=== PATIENT | male | born 1960 | race Caucasian/White ===

== ENCOUNTER 2022-09-25 09:08 | Inpatient (IN) ==
--- NOTE | 2022-09-15 09:17 | Anesthesiology Consultation ---
Date of Service September 15, 2022 Assessment & Plan (1) Encounter for pre-operative examination: Chart Review Chart Review: Acceptable Risk for Surgery (pending 09/15/22 PCP note ) and Patient NOT seen in Pre Admission Testing - Please attempt to obtain PCP office note from 09/15/22 (Ronel Ghosh) - Check [facility] AM DOS -COVID screening: Per PAT nursing assessment on 09/15/22. No known COVID-19 pos itive contacts or current COVID-19 related symptoms. Travel screen negative. Patient vaccinated for Covid. At surgeon discretion if preop Covid testing being done. History Surgery Operation Date: 09/25/22 10:05 Proposed Procedures p L3-S1 Decompression and Fusion, Spinal Cord Monitoring - Milad Fernandez, Height/Weight Height: 5 ft 10 in Weight: 124.738 kg Allergies Allergy/AdvReac Type Severity Reaction Status Date / Time No Known Drug Allergies Allergy Verified 09/15/22 07:33 fresh fruit Allergy Anaphylaxis Uncoded 09/15/22 07:33 Medications Home Medications Medication Instructions Recorded Confirmed Last Taken atorvastatin 20 mg tablet 20 mg PO QAM 09/15/22 09/15/22 Unknown canagliflozin 300 mg tablet 300 mg PO QAM 09/15/22 09/15/22 Unknown (Invokana) levothyroxine 137 mcg tablet 137 mcg PO QAM 09/15/22 09/15/22 Unknown lisinopril 10 mg tablet 10 mg PO QAM 09/15/22 09/15/22 Unknown Past Medical History Medical History (Updated 09/15/22 @ 09:15 by Maria Luisa Cartwright PA-C) Arthritis mild-in hands and back Diabetes mellitus, type 2 History of COVID-19 11/2020, tested at PCP, not hosp; shortness of breath, loss of taste and smell, headache, diarrhea, vomiting, sinus symptoms>received the monoclonal antibody infusions>resolved. Hyperlipidemia Hypertension Hypothyroidism YASMEEN (obstructive sleep apnea) s/p UPPP surgery per records Past Surgical History Surgical History History of uvulopalatopharyngoplasty to help with sleep apnea Hx of sinus surgery Hx of umbilical hernia repair S/P excision of lipoma under local>removed from shoulder blade Social History Smoking Status: Never smoker Do You Dip or Chew Tobacco: No Hx Alcohol Use: Yes alcohol intake frequency: holidays/special occasions only Hx Substance Use: No substance use type: does not use Lab Results Anesthesia Preop Results Results Anesthesia Widget: WBC 10.22 K/ul (4.8-10.8) 08/27/22 Hgb 17.0 g/dl (14.0-18.0) 08/27/22 Hct 52.4 % (42.0-52.0) H 08/27/22 Plt 266 K/uL (130-400) 08/27/22 Na 137 mmol/L (136-145) 08/27/22 K 4.3 mmol/L (3.5-5.1) 08/27/22 Cl 107 mmol/L (98-107) 08/27/22 CO2 22 mmol/L (21-32) 08/27/22 BUN 21 mg/dl (6-23) 08/27/22 Creat 1.10 mg/dl (0.6-1.4) 08/27/22 Glucose Level 83 mg/dl (70-99(Fasting)) 08/27/22 PT 10.9 Seconds (9.0-12.0) 08/27/22 PTT 29.3 Seconds (21.0-31.0) 08/27/22 INR 1.0 (0.9-1.1) 08/27/22 Urine Color Yellow 08/27/22 Urine Appearance Clear (Clear) 08/27/22 Urine pH 5.0 (4.5-7.5) 08/27/22 Urine Specific Anderson 1.033 (1.000-1.030) H 08/27/22 Urine Protein Negative (Negative) 08/27/22 Urine Glucose (UA) 3+ (Negative) H 08/27/22 Urine Ketones Negative (Negative) 08/27/22 Urine Blood 3+ (Negative) H 08/27/22 Urine Nitrite Negative (Negative) 08/27/22 Urine Bilirubin Negative (Negative) 08/27/22 Urine Urobilinogen Negative (Negative) 08/27/22 Urine Leukocyte Esterase Negative (Negative) 08/27/22 Urine WBC (Auto) 1-5 /hpf (0-5) 08/27/22 Urine RBC (Auto) 0-4 /hpf (0-4) 08/27/22 Urine Hyaline Casts (Auto) 1-5 /lpf (0-5) 08/27/22 Urine Epithelial Cells (Auto) 0-5 /lpf (0-5) 08/27/22 Urine Bacteria (Auto) Negative (Negative) 08/27/22 Blood Type A Positive 08/27/22 Antibody Screen NEGATIVE 08/27/22 Testing Laboratory Results 08/27/22= URINE CULTURE: No growth Electrocardiogram Date: 08/27/22 Findings: + NSR @ (75bpm ) Rightward axis Chest X-Ray Date: 08/27/22 Findings: + NAD
[~2022-09-25 09:08] MED LIST: ACETAMINOPHEN 500 MG TAB PO SCH; CeleBREX 200 MG CAP PO SCH; GABAPENTIN 600 MG DOSE PO SCH; LR 15ML/HR IV SCH
[2022-09-25] MEDS ORDERED: ATROPINE SULFATE 0.1 MG/ML 10ML SYR IV PRN (10:56)
[2022-09-25] MEDS ORDERED: ePHEDrine sulfate 50 MG/ML AMP IV PRN (10:56)
[2022-09-25] MEDS ORDERED: ONDANSETRON INJ 2 MG/ML 2 ML VIAL IV PRN ×2 (10:56→16:29)
[2022-09-25] MEDS ORDERED: ROCURONIUM BROMIDE 10 MG/ML 5 ML VIAL IV ONE ×3 (11:39→13:14)
[2022-09-25] MEDS ORDERED: PROPOFOL IV EMULSION 10 MG/ML 20 ML VIAL IV ONE (11:39)
[2022-09-25] MEDS ORDERED: LIDOCAINE 2% 2 ML VIAL/AMP(20MG/ML) INFIL ONE (11:39)
[2022-09-25] MEDS ORDERED: MIDAZOLAM HCL 1 MG/ML 2ML VIAL ONE (11:40)
[2022-09-25] MEDS ORDERED: DEXAMETHASONE SOD INJ 4 MG/ML VIAL ONE (11:40)
[2022-09-25] MEDS ORDERED: fentaNYL citrate PF 100 MCG/2 ML VIAL ONE (11:40)
[2022-09-25] MEDS ORDERED: ONDANSETRON INJ 2 MG/ML 2 ML VIAL ONE (11:40)
--- NOTE | 2022-09-25 11:58 | History & Physical Bridge Note ---
Date of Service September 25, 2022 History & Physical Bridge Note I have examined the patient, reviewed the History & Physical and in the interval since the performance of the History & Physical I have noted the following changes of clinical significance: no changes noted
--- NOTE | 2022-09-25 11:59 | History & Physical Report ---
Date of Service September 25, 2022 Assessment & Plan (1) Neurogenic claudication due to lumbar spinal stenosis: Plan: L3-S1 decompression and fusion History of Present Illness Chief Complaint: Back and leg pain Primary Care Provider: NO PCP This is a 62-year-old male who presents with chronic persistent back and leg pain after failing extensive course of nonoperative care is here for surgical intervention. Allergies Allergy/AdvReac Type Severity Reaction Status Date / Time No Known Drug Allergies Allergy Verified 09/25/22 10:06 fresh fruit Allergy Anaphylaxis Uncoded 09/25/22 10:06 Home Medications Medication Instructions Recorded Confirmed Type atorvastatin 20 mg tablet 20 mg PO QAM 09/15/22 09/25/22 History canagliflozin 300 mg tablet 300 mg PO QAM 09/15/22 09/25/22 History (Invokana) levothyroxine 137 mcg tablet 137 mcg PO QAM 09/15/22 09/25/22 History lisinopril 10 mg tablet 10 mg PO QAM 09/15/22 09/25/22 History Past Med/Surg History Medical History (Updated 09/25/22 @ 11:58 by Milad Fernandez, ) Arthritis mild-in hands and back Diabetes mellitus, type 2 History of COVID-19 11/2020, tested at PCP, not hosp; shortness of breath, loss of taste and smell, headache, diarrhea, vomiting, sinus symptoms>received the monoclonal antibody infusions>resolved. Hyperlipidemia Hypertension Hypothyroidism YASMEEN (obstructive sleep apnea) s/p UPPP surgery per records Surgical History History of uvulopalatopharyngoplasty to help with sleep apnea Hx of sinus surgery Hx of umbilical hernia repair S/P excision of lipoma under local>removed from shoulder blade Social History Smoking Status: Never smoker Second Hand Exposure: No; Do You Dip or Chew Tobacco: No; Tobacco Cessation Education Requested by Patient: No Hx Alcohol Use: Yes Hx Substance Use: No Preferred Language: Kinyarwanda Communication Ability: Effective Inventory Assistant Required: No Beliefs That Will Affect Care: None Current Living Situation: Spouse and Family Feels Safe at Home: Yes Safety Concerns: Feels Safe At This Time Assistive Devices: Glasses Assistive Devices Comment: reading glasses Physical Exam Physical Exam: Patient is alert and oriented Heart regular rhythm Lungs clear Results & Data Results & Data Vital Signs (Past 12 Hours) Vital Signs Temp Pulse Resp BP Pulse Ox O2 Del Method 09/25/22 10:09 36.7 C 77 20 147/82 H 95 Room Air
[2022-09-25] MEDS ORDERED: BUPIVACAINE/EPINEPHRINE 0.25% 1:200,000 30 ML VIAL ONE (12:40)
[2022-09-25] MEDS ORDERED: ceFAZolin 330 MG/ML 1 GM VIAL ONE (12:40)
[2022-09-25] MEDS ORDERED: FLOSEAL HEMOSTATIC MATRIX 10ML TOP ONE (13:28)
[2022-09-25] MEDS ORDERED: PHENYLEPHRINE HCL 10 MG/ML VIAL ONE (14:18)
[2022-09-25] MEDS ORDERED: HYDROmorphone INJ 2 MG/ML SYR/VIAL ONE (14:56)
--- NOTE | 2022-09-25 15:06 | Operative Report ---
Post Operative Report Pre & Post Diagnosis Operation Date: 09/25/22 10:45 Pre-Op Diagnosis: Neurogenic claudication due to lumbar spinal stenosis Obesity Post-Op Diagnosis: Same I identified the patient and participated in the time-out.: Yes Procedure Operation Date: 09/25/22 10:45 Actual Procedures p L4-S1 Decompression and Fusion, Spinal Cord Monitoring(Not Applicable) - Milad Fernandez DO Surgeon Milad Fernandez DO Bone Puller Louis Bill Estimated Blood Loss 300 Findings See Below The patient is 5 foot 10 weighing over 120 kg with a BMI in excess of 38. The patient's body habitus did contribute to significant technical difficulty required deepest retractors longer instruments in order to perform his procedure. This had at least 50% increased operative time. Specimens None Indications This is a 59-year-old male who presents above-mentioned diagnosis after failing since course of nonoperative care is here for surgical invention. Description of Procedure Patient was met with identified informed consent obtained. Patient was then daron en to the operative suite underwent ablation placed in a prone position the Jex table top Rohit frame. All bony promises well-padded eyes inspected to ensure no external pressure placed upon the. This point the lumbar spine was prepped and draped no sterile fashion. Sharp dissection with the assistance of Bovie cautery to form down to and exposing the lamina transverse processes of L for L5 and sacral ala bilaterally. From caudal cephalad fashion complete laminectomy L5 L4 partial laminectomy L3 was performed including bilateral medial facetectomies and foraminotomies addressing severe spinal stenosis. Pedicle screws were then placed in L4-L5 and S1 levels bilaterally with assistance of fluoroscopy and appropriate sized masood placed. By way the transforaminal approach and right complete discectomy of L5-S1 was performed endplates guided to subcortically bone and a 12 x 26 mm Spira cage with I factor tapped the position. Then proceeded to L3-L4 and again by way of a transfemoral approach and right complete discectomy performed endplates curetted to subcortically bone and a 13 x 26 mm Spira cage with I factor tapped in position. Proper size rods were locked into position transverse processes of L4-5 and the sacral ala burred to subcortical bleeding bone. I factor amount of the test and locally harvested morselized autograft was placed in the posterior gutters. 15 round LENI inserted. The incision was then closed with 1 Vicryl the fascia 2-0 Vicryl subcutaneously and 4 Monocryl for final skin closure. Steri-Strips sterile dressing placed. Patient waken taken to PACU stable condition. Please note spinal cord monitoring was utilized at the procedure no changes noted. Lastly Louis Matamoros was present at the entire surgeon while the patient positioning complex portion of the surgery final skin closure. I attest to the content of the Intraoperative Record and any orders documented therein. Any exceptions are noted below.
[2022-09-25] MEDS ORDERED: SUGAMMADEX SODIUM 200 MG/2 ML VIAL IV ONE ×3 (15:11→16:42)
--- NOTE | 2022-09-25 15:38 | Fluoroscopy Report ---
FL lumbar spine 2-3V CLINICAL HISTORY: L4-S1 DFI COMPARISON STUDY: Lumbar spine MRI August 11, 2022. FLUOROSCOPY TIME: 20 seconds. Ka, r: 12.334 mGy FLUOROSCOPIC IMAGES: 2 FINDINGS: Fluoroscopy was provided during L4-L5 and L5-S1 discectomies with interbody spacer placemen t. Posterior decompression is noted with bilateral pedicle screws at the L4, L5 and S1 levels. A line ar radiodensity projects over the canal at the L4-L5 level. IMPRESSION: 1. Fluoroscopy provided during L4-L5 and L5-S1 discectomies, posterior decompression and bilateral pe dicle screw fusion. 2. Linear radiodensity which projects over the canal at the L4-L5 level. This may be postsurgical how ever clinical correlation is recommended. This finding will be called/faxed to the ordering provider at time of dictation. ACT 112: Negative or not required by law. Electronically signed by: Ernesto Reeves M.D. 09/25/2022 3:37 PM
[2022-09-25] MEDS: fentaNYL citrate PF 100 MCG/2 ML VIAL IV PRN ×4 (15:51→16:06)
--- NOTE | 2022-09-25 16:14 | Anesthesiology Progress Note ---
Date of Service September 25, 2022 Anesthesia Post Procedure Vital Signs Vital Signs: Temp Pulse Pulse Resp BP Pulse Ox O2 Del Method 09/25/22 16:05 97.2 F L 76 14 128/76 94 Nasal Cannula 09/25/22 15:55 71 16 133/80 96 Nasal Cannula 09/25/22 15:45 84 17 122/77 97 Nasal Cannula 09/25/22 15:35 85 14 125/81 98 Oxymask 09/25/22 15:27 97.0 F L 87 19 130/82 95 Oxymask 09/25/22 10:09 98.1 F 77 20 147/82 H 95 Room Air O2 Flow Rate 09/25/22 16:05 2 09/25/22 15:55 2 09/25/22 15:45 2 09/25/22 15:35 6 09/25/22 15:27 10 09/25/22 10:09 Pain Intensity Lower Back: Pain Intensity: 3 Transfer of Care Handoff Completed per policy Notes Mental Status: alert / awake / arousable and participated in evaluation Patient Amnestic to Procedure: Yes Nausea / Vomiting: adequately controlled Pain: adequately controlled Airway Patency, RR, SpO2: stable & adequate BP & HR: stable & adequate Hydration State: stable & adequate Anesthetic Complications: no major complications apparent and Pt Satisfied with anesthetic care
[2022-09-25] MEDS ORDERED: DO NOT ADMINISTER FLU VACCINE PRN (16:29)
[2022-09-25] MEDS ORDERED: ACETAMINOPHEN 500 MG TAB PO PRN (16:29)
[2022-09-25] MEDS ORDERED: ACETAMINOPHEN 1,000 MG/100 ML VIAL IV PRN (16:29)
[2022-09-25] MEDS ORDERED: bisacodyL 10 MG SUPP PR PRN (16:29)
[2022-09-25] MEDS ORDERED: diphenhydrAMINE Capsule 25 MG CAP PO PRN (16:29)
[2022-09-25] MEDS ORDERED: hydrOXYzine HCl 25 MG TAB PO PRN (16:29)
[2022-09-25] MEDS ORDERED: FAMOTIDINE 20 MG TAB PO PRN (16:29)
[2022-09-25] MEDS ORDERED: HYDROmorphone INJ 1 MG/ML SYRINGE IV PRN (16:29)
[2022-09-25] MEDS ORDERED: MAGNESIUM HYDROXIDE SUSP 30 ML UDC PO PRN (16:29)
[2022-09-25] MEDS ORDERED: LORazepam 2 MG/1 ML VIAL IV PRN (16:29)
[2022-09-25] MEDS ORDERED: traMADol HCL 50 MG TABLET PO PRN (16:29)
[2022-09-25] MEDS ORDERED: ALUMINUM/MAGNESIUM SUSP 30 ML UDC PO PRN (16:29)
[2022-09-25] MEDS ORDERED: SOD PHOSPHATE/SOD BIPHOSPHATE ENEMA 132 ML BTL PR PRN (16:29)
[2022-09-25] MEDS ORDERED: HYDROmorphone INJ 0.5 MG/0.5 ML SYR IV PRN (16:29)
[2022-09-25] MEDS ORDERED: PROMETHAZINE HCL 12.5 MG in SODIUM CHLORIDE 0.9% 50 ML IV PRN (16:29)
[2022-09-25] MEDS ORDERED: NALOXONE HCL 0.4 MG/1 ML VIAL/CARP IV PRN (16:29)
[2022-09-25] MEDS ORDERED: ONDANSETRON 4 MG OD TAB PO PRN (16:29)
[2022-09-25] MEDS ORDERED: DO NOT ADMINISTER PNEUMOCOCCAL VACCINE PRN (16:29)
[2022-09-25] MEDS ORDERED: LORazepam 0.5 MG TAB PO PRN (16:29)
[2022-09-25] MEDS ORDERED: METOCLOPRAMIDE HCL INJ 5 MG/ML 2 ML VIAL IV PRN (16:29)
[2022-09-25] MEDS ORDERED: LACTATED RINGER'S 1,000 ML IV SCH (16:29)
[2022-09-25] MEDS ORDERED: GLUCOSE 10 TAB/TUBE PO PRN (17:23)
[2022-09-25] MEDS ORDERED: DEXTROSE 50% 50 ML SYRINGE IV PRN (17:23)
[2022-09-25] MEDS ORDERED: GLUCOSE 40% GEL 15 GM TUBE PO PRN (17:23)
[2022-09-25] MEDS ORDERED: CARBOHYDRATES FOR HYPOGLYCEMIA PO PRN (17:23)
[2022-09-25] MEDS ORDERED: GLUCAGON FOR INJ 1 MG VIAL SQ PRN (17:23)
[2022-09-25] MEDS: oxyCODONE HCL IR 5 MG TAB (IMMEDIATE RELEASE) PO PRN (20:02)
[2022-09-25] MEDS: DOCUSATE SODIUM/SENNA 50/8.6MG TAB PO SCH (20:02)
[2022-09-25] MEDS: ceFAZolin 2000MG 2,000 MG/15 ML SYR IV SCH (20:03)
--- NOTE | 2022-09-25 20:23 | Hospitalist Consultation ---
Date of Consultation September 25, 2022 Assessment & Plan (1) Neurogenic claudication due to lumbar spinal stenosis: POD#0 L3-S1 decompression and fusion by Dr. Fernandez Activity and wound care orders as per ortho Pain control with bowel regimen PT/OT Monitor H/H for acute blood loss anemia and transfuse blood products PRN EBL 300 cc (2) Diabetes mellitus, type 2: Hgb A1c 6.8 04/2022, will update with a.m. labs Hold Invokana and utilize NovoLog per protocol while hospitalized (3) Hypertension: BP controlled, continue lisinopril (4) Hypothyroidism: Continue levothyroxine DVT PROPHYLAXIS Teds/SCDs as per spine Ortho Patient seen in collaboration with Dr. Ruiz. Thank you for this consultation. We will follow the patient with you during their hospital stay. You can reach a member of the [facility] Hospitalist Team 19/10 via the [facility] Hospitalist role in [place] Text. Supervising Physician Co-Signing Physician Notes I have seen and examined the patient and have discussed the case with the provider above. I agree with the assessment and plan as stated. 62 yo M POD# 0 s/p lumbar surgery. Doing well, pain is controlled. Physical exam as above. Medications reviewed. Cont plan as outlined above. Thank you for this consultation. DO Joseph History of Present Illness Reason for Consultation: Postop medical management Requesting Physician: Dr. Fernandez Attending Physician: Milad Fernandez DO History of Present Illness 62-year-old male with PMH DM type II, HTN, HLD, hypothyroidism, YASMEEN s/p UPPP, and other problems to below who is s/p L3-S1 decompression and fusion today by Dr. Fernandez. Postoperatively, the patient is doing well. He is somewhat lethargic but arouses easily to verbal stimuli. Reports pain is well controlled. Denies numbness, tingling, weakness to lower extremities. No chest pain or shortness of breath. Reports mild nausea, no abdominal pain. Denies lightheadedness and dizziness. Antoine catheter is in place draining clear yellow urine. Allergies Allergy/AdvReac Type Severity Reaction Status Date / Time No Known Drug Allergies Allergy Verified 09/25/22 10:06 fresh fruit Allergy Anaphylaxis Uncoded 09/25/22 10:06 Home Medications Medication Instructions Recorded Confirmed Type atorvastatin 20 mg tablet 20 mg PO QAM 09/15/22 09/25/22 History canagliflozin 300 mg tablet 300 mg PO QAM 09/15/22 09/25/22 History (Invokana) levothyroxine 137 mcg tablet 137 mcg PO QAM 09/15/22 09/25/22 History lisinopril 10 mg tablet 10 mg PO QAM 09/15/22 09/25/22 History Patient History Medical History Arthritis mild-in hands and back Diabetes mellitus, type 2 History of COVID-19 11/2020, tested at PCP, not hosp; shortness of breath, loss of taste and smell, headache, diarrhea, vomiting, sinus symptoms>received the monoclonal antibody infusions>resolved. Hyperlipidemia Hypertension Hypothyroidism YASMEEN (obstructive sleep apnea) s/p UPPP surgery per records Surgical History History of uvulopalatopharyngoplasty to help with sleep apnea Hx of sinus surgery Hx of umbilical hernia repair S/P excision of lipoma under local>removed from shoulder blade Social History Smoking Status: Never smoker Second Hand Exposure: No; Do You Dip or Chew Tobacco: No; Tobacco Cessation Education Requested by Patient: No Hx Alcohol Use: Yes Hx Substance Use: No Preferred Language: [place] Communication Ability: Effective Medical Social Worker Required: No Beliefs That Will Affect Care: None Current Living Situation: Spouse and Family Feels Safe at Home: Yes Safety Concerns: Feels Safe At This Time Assistive Devices: Glasses Assistive Devices Comment: reading glasses Review of Systems Review of Systems: ROS per HPI, all other systems reviewed and negative Physical Exam Constitutional: WD/WN, vitals as above + obese Eyes: PERRL, conjunctivae normal, anicteric sclerae ENMT: external ear and nose normal, oropharynx normal Respiratory: normal respiratory effort, lungs clear to auscultation Cardiovascular: Rate/Rhythm: regular rate and regular rhythm Vessels: normal peripheral pulses Extremities: no edema Gastrointestinal (Abdomen): normal bowel sounds, soft, nontender, no hepa tosplenomegaly Musculoskeletal: S/p back surgery, pedal pushes and pull strong bilaterally, drain in place draining bloody drainage Skin: no rashes, warm and dry Neurologic: PERRL, EOMI, accommodation nl, no face palsy, no dysarthria Psychiatric: Orientation: oriented x 3; + not alert (Somewhat lethargic but arouses easily to verbal stimuli) Results & Data Results & Data Vital Signs (Past 12 Hours) Vital Signs Temp Pulse Pulse Resp BP BP Pulse Ox 09/25/22 19:51 36.7 C 72 20 112/70 96 09/25/22 18:29 36.3 C L 81 16 119/77 92 09/25/22 17:30 36.2 C L 67 16 113/72 94 09/25/22 17:36 36.4 C L 66 16 118/75 94 09/25/22 16:59 36.5 C 70 16 121/74 94 09/25/22 16:29 36.4 C L 75 16 122/74 92 09/25/22 16:15 36.2 C L 87 17 130/72 94 09/25/22 16:05 76 14 128/76 94 09/25/22 15:55 71 16 133/80 96 09/25/22 15:45 84 17 122/77 97 09/25/22 15:35 85 14 125/81 98 09/25/22 15:27 36.1 C L 87 19 130/82 95 09/25/22 10:09 36.7 C 77 20 147/82 H 95 O2 Del Method O2 Flow Rate 09/25/22 19:51 Nasal Cannula 3 09/25/22 18:29 Nasal Cannula 2 09/25/22 17:30 Nasal Cannula 2 09/25/22 17:36 Nasal Cannula 09/25/22 16:59 Nasal Cannula 2 09/25/22 16:29 Nasal Cannula 2 09/25/22 16:15 Nasal Cannula 2 09/25/22 16:05 Nasal Cannula 2 09/25/22 15:55 Nasal Cannula 2 09/25/22 15:45 Nasal Cannula 2 09/25/22 15:35 Oxymask 6 09/25/22 15:27 Oxymask 10 09/25/22 10:09 Room Air
[2022-09-25] MEDS: INSULIN ASPART PER UNIT CHARGE SC SCH (21:29)
[2022-09-26] MEDS: oxyCODONE HCL IR 5 MG TAB (IMMEDIATE RELEASE) PO PRN ×4 (05:01→19:58)
[2022-09-26] MEDS: ceFAZolin 2000MG 2,000 MG/15 ML SYR IV SCH (05:03)
[2022-09-26] MEDS: LEVOTHYROXINE SODIUM 137 MCG TABLET PO SCH (05:03)
[2022-09-26] MEDS: POLYETHYLENE (MIRALAX) 17 GM PACK PO SCH ×3 (05:03→18:00)
[2022-09-26 07:08] LABS: Basophils # (auto) 0.01 K/uL (0-0.2); Basophils % (auto) 0.1 %; Hematocrit (blood only) 42.2 % (42.0-52.0); Hemoglobin 13.7 g/dl (14.0-18.0); Immature Granulocytes # (auto) 0.07 K/uL (0.01-0.20); Immature Granulocytes % (auto) 0.4 %; Lymphocytes # (auto) 1.12 K/uL (1.2-3.4); Lymphocytes % (auto) 7.2 %; Mean Corpuscular Hemoglobin 27.9 pg (25.0-34.0); Mean Corpuscular Hgb Conc 32.5 g/dL (32.0-36.0); Mean Corpuscular Volume 85.9 fL (80.0-100.0); Mean Platelet Volume 9.7 fL (9.4-12.4); Monocytes % (auto) 7.1 %; Neutrophils # (auto) 13.29 K/uL (1.40-6.50); Neutrophils % (auto) 85.2 %; Platelet Count 261 K/uL (130-400); RDW Coefficient of Variation 14.1 % (11.5-14.5); RDW Standard Deviation 44.2 fL (36.4-46.3); Red Blood Count 4.91 M/uL (4.70-6.10); White Blood Count 15.59 K/ul (4.8-10.8)
[2022-09-26 07:23] LABS: BUN Creatinine Ratio 19.8 (10-20); Calcium 8.5 mg/dl (8.6-10.3); Creatinine Clr Calc Pharmacy 88.8 ml/min; Est GFR (African American) 81.5 ml/min; Est GFR (Non-African American) 70.3 ml/min; Potassium 4.7 mmol/L (3.5-5.1)
[2022-09-26 08:10] LABS: Estimated Average Glucose 151 mg/dl; Hemoglobin A1C 6.9 % (4.5-5.6)
[2022-09-26] MEDS: lisinopril 10 MG TAB PO SCH (08:55)
[2022-09-26] MEDS: INSULIN ASPART PER UNIT CHARGE SC SCH ×4 (08:56→20:53)
[2022-09-26] MEDS: dexAMETHasone 6 MG in SYRINGE 0 ML IV SCH (08:56)
[2022-09-26] MEDS: ATORVASTATIN 20 MG TAB PO SCH (08:56)
[2022-09-26] MEDS ORDERED: CANAGLIFLOZIN 300 MG PO SCH (09:00)
--- NOTE | 2022-09-26 10:56 | Orthopedic Progress Note ---
Date of Service September 26, 2022 Assessment & Plan (1) Neurogenic claudication due to lumbar spinal stenosis: Plan: At this time we will continue physical therapy monitor his LENI output anticipate discharge home Wednesday. Admission and Anticipated Discharge Date Admission Date: September 25, 2022 Subjective Patient's back pain is controlled leg pain improved Physical Exam Physical Exam: Patient is currently in bed. Appears comfortable. Is constricted testing. Results & Data Vital Signs (Past 12 Hours) Vital Signs Temp Pulse Resp BP Pulse Ox O2 Del Method O2 Flow Rate 09/26/22 07:30 36.9 C 67 16 105/66 95 Room Air 09/26/22 04:56 36.8 C 71 18 110/69 96 Room Air 09/26/22 00:49 36.9 C 73 20 120/73 96 Nasal Cannula 3 Queries Orthopedic Spine Obesity: Yes
--- NOTE | 2022-09-26 14:50 | Hospitalist Progress Note ---
Date of Service September 26, 2022 Assessment & Plan (1) Neurogenic claudication due to lumbar spinal stenosis: Plan: POD#1 L3-S1 decompression and fusion by Dr. Fernandez Activity and wound care orders as per ortho Pain control with bowel regimen PT/OT Monitor H/H for acute blood loss anemia and transfuse blood products PRN EBL 300 cc (2) Diabetes mellitus, type 2: Plan: Hgb A1c 6.8 04/2022, A1c this admission 6.9 Hold Invokana and utilize NovoLog per protocol while hospitalized (3) Hypertension: Plan: BP controlled, continue lisinopril (4) Hypothyroidism: Plan: Continue levothyroxine DVT PROPHYLAXIS: Teds/SCDs as per spine Ortho Admission and Anticipated Discharge Date Admission Date: September 25, 2022 Subjective patient seen and examined at bedside as a follow-up of medical management for status post lumbar surgery for neurogenic claudication due to lumbar spinal stenosis. Patient was lying in bed, on room air, NAD, reports pain fairly bearable with pain medication, has worked with physical therapy in the morning, is tolerating diet well, has not moved bowel, is moving gas, denies any fever or chills or headache or dizziness. Physical Exam Physical Exam: GENERAL: Alert and oriented x3. NAD, on RA. Obese class II HEENT: No pallor, no icterus. Pupils equal, round and reactive to light. Oral mucosa moist. NECK: No JVD, no neck masses. HEART: S1 and S2 heard. Regular rate and rhythm. No murmur, no gallop. RESPIRATORY SYSTEM: Normal AP diameter. No accessory muscle use. No wheezing, no crackles. ABDOMEN: Soft, bowel sounds present, nontender, no distention. CENTRAL NERVOUS SYSTEM: No facial droop. Speech is clear. Obeys simple commands. Moves extremities. EXTREMITIES: No edema, no erythema seen. Low back dressing C/T/I, LENI drain with minimal serosanguineous collection noted. Results & Data Results & Data Vital Signs (Past 12 Hours) Vital Signs Temp Pulse Resp BP Pulse Ox O2 Del Method 09/26/22 11:59 37.0 C 62 16 113/65 94 Room Air 09/26/22 07:30 36.9 C 67 16 105/66 95 Room Air 09/26/22 04:56 36.8 C 71 18 110/69 96 Room Air
[2022-09-26] MEDS: DOCUSATE SODIUM/SENNA 50/8.6MG TAB PO SCH (19:56)
[2022-09-27] MEDS: POLYETHYLENE (MIRALAX) 17 GM PACK PO SCH ×5 (00:30→23:09)
[2022-09-27] MEDS: LEVOTHYROXINE SODIUM 137 MCG TABLET PO SCH (05:34)
[2022-09-27 07:29] LABS: Hematocrit (blood only) 38.2 % (42.0-52.0); Hemoglobin 12.8 g/dl (14.0-18.0); Mean Corpuscular Hemoglobin 28.7 pg (25.0-34.0); Mean Corpuscular Hgb Conc 33.5 g/dL (32.0-36.0); Mean Corpuscular Volume 85.7 fL (80.0-100.0); Mean Platelet Volume 10.2 fL (9.4-12.4); Platelet Count 246 K/uL (130-400); RDW Coefficient of Variation 14.1 % (11.5-14.5); RDW Standard Deviation 43.9 fL (36.4-46.3); Red Blood Count 4.46 M/uL (4.70-6.10); White Blood Count 20.14 K/ul (4.8-10.8)
--- NOTE | 2022-09-27 07:36 | Orthopedic Progress Note ---
Date of Service September 27, 2022 Assessment & Plan (1) Neurogenic claudication due to lumbar spinal stenosis: Plan: Patient is doing well postoperative day #2. We will continue with GI DVT prophylaxis and pain control measures. Seen continue to mobilize. All likelih ood will be able to get him home tomorrow. Admission and Anticipated Discharge Date Admission Date: September 25, 2022 Subjective Patient was seen bedside in room 375. He states that he is doing pretty well at this point. He has not taken any pain medication today. His legs feel much better. He still some soreness in his back specially when he tries to change position. Other than that he is doing well. He denies any other numbness, tingling, paresthesias. Physical Exam Physical Exam: On exam he is alert and oriented. His calves are supple nontender his abdomen supple nontender. His LENI drain is holding suction is placed out 80 cc on overnight and 70 cc during days. His strength and sensation are both intact. Cardiovascular exam reveals no gross abnormalities. Visual quezada are grossly intact. Results & Data Vital Signs (Past 12 Hours) Vital Signs Temp Pulse Pulse Resp BP Pulse Ox O2 Del Method 09/27/22 05:45 101/67 09/26/22 22:30 88 94 Room Air 09/26/22 19:55 Room Air 09/26/22 20:23 36.7 C 76 18 100/64 92 Room Air
[2022-09-27] MEDS: ATORVASTATIN 20 MG TAB PO SCH (08:36)
[2022-09-27] MEDS: lisinopril 10 MG TAB PO SCH (08:36)
[2022-09-27] MEDS: dexAMETHasone 6 MG in SYRINGE 0 ML IV SCH (08:36)
[2022-09-27] MEDS: INSULIN ASPART PER UNIT CHARGE SC SCH ×4 (08:43→21:13)
[2022-09-27] MEDS: oxyCODONE HCL IR 5 MG TAB (IMMEDIATE RELEASE) PO PRN ×3 (09:48→21:11)
--- NOTE | 2022-09-27 15:35 | Hospitalist Progress Note ---
Date of Service September 27, 2022 Assessment & Plan (1) Neurogenic claudication due to lumbar spinal stenosis: Plan: POD#2 L3-S1 decompression and fusion by Dr. Fernandez Activity and wound care orders as per ortho Pain control with bowel regimen PT/OT Monitor H/H for acute blood loss anemia and transfuse blood products PRN EBL 300 cc (2) Diabetes mellitus, type 2: Plan: Hgb A1c 6.8 04/2022, A1c this admission 6.9 Hold Invokana and utilize NovoLog per protocol while hospitalized (3) Hypertension: Plan: BP controlled, continue lisinopril (4) Hypothyroidism: Plan: Continue levothyroxine DVT PROPHYLAXIS: Teds/SCDs as per spine Ortho Admission and Anticipated Discharge Date Admission Date: September 25, 2022 Subjective Patient seen and examined at bedside as a follow-up of medical management for status post lumbar surgery for neurogenic claudication due to lumbar spinal stenosis. Patient was lying in bed, on room air, NAD, reports pain getting better, was working with physical therapy in the morning, is tolerating diet well, has not moved bowel, is moving gas, denies any fever or chills or headache or dizziness. Physical Exam Physical Exam: GENERAL: Alert and oriented x3. NAD, on RA. Obese class II HEENT: No pallor, no icterus. Pupils equal, round and reactive to light. Oral mucosa moist. NECK: No JVD, no neck masses. HEART: S1 and S2 heard. Regular rate and rhythm. No murmur, no gallop. RESPIRATORY SYSTEM: Normal AP diameter. No accessory muscle use. No wheezing, no crackles. ABDOMEN: Soft, bowel sounds present, nontender, no distention. CENTRAL NERVOUS SYSTEM: No facial droop. Speech is clear. Obeys simple commands. Moves extremities. EXTREMITIES: No edema, no erythema seen. Low back dressing C/T/I, LENI drain with minimal serosanguineous collection noted. Results & Data Results & Data Vital Signs (Past 12 Hours) Vital Signs Temp Pulse Resp BP Pulse Ox O2 Del Method 09/27/22 14:10 36.8 C 68 16 118/70 94 Room Air 09/27/22 08:05 36.9 C 62 18 104/67 95 Room Air 09/27/22 05:45 101/67
[2022-09-27] MEDS: DOCUSATE SODIUM/SENNA 50/8.6MG TAB PO SCH (21:11)
[2022-09-28] MEDS: POLYETHYLENE (MIRALAX) 17 GM PACK PO SCH (05:44)
[2022-09-28] MEDS: LEVOTHYROXINE SODIUM 137 MCG TABLET PO SCH (06:15)
[2022-09-28 06:38] LABS: Hematocrit (blood only) 39.6 % (42.0-52.0); Hemoglobin 13.5 g/dl (14.0-18.0); Mean Corpuscular Hemoglobin 28.7 pg (25.0-34.0); Mean Corpuscular Hgb Conc 34.1 g/dL (32.0-36.0); Mean Corpuscular Volume 84.1 fL (80.0-100.0); Mean Platelet Volume 10.1 fL (9.4-12.4); Platelet Count 249 K/uL (130-400); RDW Coefficient of Variation 14.4 % (11.5-14.5); RDW Standard Deviation 44.1 fL (36.4-46.3); Red Blood Count 4.71 M/uL (4.70-6.10)
[2022-09-28] MEDS: ATORVASTATIN 20 MG TAB PO SCH (08:30)
[2022-09-28] MEDS: lisinopril 10 MG TAB PO SCH (08:30)
[2022-09-28] MEDS: INSULIN ASPART PER UNIT CHARGE SC SCH ×2 (08:30→12:36)
--- NOTE | 2022-09-28 09:29 | Discharge Summary ---
Date of Service September 28, 2022 Admission HPI Per Admitting Provider This is a 62-year-old male who presents with chronic persistent back and leg pain after failing extensive course of nonoperative care is here for surgical intervention. Principal Diagnosis Lumbar spinal stenosis with neurogenic claudication Discharge Data Allergies Allergy/AdvReac Type Severity Reaction Status Date / Time apple Allergy Unknown Unknown Verified 09/26/22 11:53 banana Allergy Unknown Unknown Verified 09/26/22 11:53 blueberry Allergy Unknown Unknown Verified 09/26/22 11:53 grape Allergy Unknown Unknown Verified 09/26/22 11:53 melon Allergy Unknown Unknown Verified 09/26/22 11:53 orange Allergy Unknown Unknown Verified 09/26/22 11:53 peach Allergy Unknown Unknown Verified 09/26/22 11:53 pear Allergy Unknown Unknown Verified 09/26/22 11:53 pineapple Allergy Unknown Unknown Verified 09/26/22 11:53 strawberry Allergy Unknown Unknown Verified 09/26/22 11:53 No Known Drug Allergies Allergy Verified 09/25/22 10:06 Consultations 09/25/22 16:29 Consult Hospitalist Routine Procedures Performed Operation Date: 09/25/22 10:45 Actual Procedures p L4-S1 Decompression and Fusion, Spinal Cord Monitoring(Not Applicable) - Milad Fernandez DO Ordered Studies 09/25/22 10:45 [place] lumbar spine 2-3V Routine Hospital Course (1) Neurogenic claudication due to lumbar spinal stenosis: Patient underwent lumbar decompression fusion tolerated this well was taken to orthopedic for possibly. Postop day 1 he is up and ambulating progress postop day #2 on postop day #3 he is ambulating halls LENI drain decreasing appropriately. Excellent strength testing. Pain well controlled. Subsequent discharge home. Discharge orders and instructions found in chart for further review. Total Time Total Time Spent Total Time Spent (In Minutes): 20 minutes Discharge Plan Discharge Items Patient Disposition: Home - Self-Care Reason For Visit: POSTOP Discharge Diagnosis: Lumbar spinal stenosis with neurogenic claudication Activity: As commented below Non-emergency contact: Primary Care Provider Call non-emergency contact if: you have any medication questions Follow-up/Referrals: PCP,NO [Physician] - Diet: Regular Addtl Attending Provider Instructions: ACTIVITY RECOMMENDATIONS: SELF CARE INSTRUCTIONS AFTER THORACIC/LUMBAR FUSIONS 1. You may walk to your tolerance. It is good exercise for your legs and back. Expect some back and intermittent leg aches and pains. 2. You may perform "counter-top" level activities (make a sandwich, pramod with a project, etc.). 3. No bending or lifting of more than 10 pounds or back twisting of any nature (roll like a log when turning in bed). 4. You may ride in a car for 20-30 minutes at a time. No driving until after your first visit with your doctor. 5. Frequent changes of position and restricting sitting to 30 minutes at a time will help limit the amount of back spasms and stiffness you may experience. 6. You may discontinue the use of ambulatory aids (cane, crutches, etc.) once your strength and confidence allow. 7. You may optical instruments supervisor the shower and let water strike your incision when you arrive home at least once daily. Do not take a tub bath, sit in a hot tub or go into a swimming pool until after your first recheck in the office. SPECIAL CARE INSTRUCTIONS: VERY IMPORTANT TO READ AND REVIEW A. Your surgical incision has been closed with a cosmetic suture under the skin that will dissolve in about 6 weeks. In 14 days, you can use a pair of clean scissors and cut the suture that is left outside of the skin at the ends of your incision. 1. The small skin tapes can be removed 7 days after surgery if they have not fallen off by that point. 2. You may keep the wound open to air as much as possible to promote healing after post-op day number 5 unless told otherwise by your doctor. 3. If you think the wound looks like it is becoming infected (redness or worsening drainage) and/or you are experiencing fever, chill or worsening back pain and muscle spasms, contact the office so that we may evaluate you as soon as possible. B. Complications are uncommon, but please contact us if you have any signs or symptoms of: 1. wound infection (fever higher than 102.5 degrees F, redness, separation of wound, drainage, or increasing pain from the incision) 2. blood clots in legs (pain, swelling, redness and warmth in legs) 3. urinary tract infection (fever higher than 102.5 degrees F, burning upon urination or increased frequency of urination) 4. nerve problems (inability to walk on your toes or heels, numbness, loss of bowel or bladder control) 5. any other symptoms that concern you C. Please call the office at if you have any concerns or questions about your operation or recovery. D. No smoking! Smoking drastically decreases the chance of a solid fusion. E. Do not take any anti-inflammatory medications (Indocin, Advil, Motrin, Aspirin, Naprosyn, etc.) as these may inhibit the chance of a solid fusion. Tylenol is okay to take for pain. MANAGING PAIN AFTER SPINAL SURGERY 1. Narcotic medication is intended for short-term use and will be provided for surgical pain. Surgical pain usually lasts for a period of 4-6 weeks. Narcotic medication includes Percocet, Vicodin, Darvocet, Tylenol #3 or Lortab. 2. Longer-term pain is more appropriately treated with non-narcotic medication such as Tylenol ES. 3. Muscle spasm is not appropriately treated with narcotics. Muscle relaxers such as Soma, Flexeril or Skelaxin can be used along with Tylenol ES. 4. Remember that we all live with some "aches and pains". This is not unusual or uncommon after an injury or as we get older. a. Back pain is expected and may include muscle spasms for 4 to 6 weeks after surgery. The pain should gradually improve. If the pain worsens for no apparent reason, please contact the office. b. Intermittent leg pain may also be experienced and should not be concerned about unless it worsens for no apparent reason. If so, please contact the office. 5. We will provide appropriate medication within the normal guidelines of their prescribed use. We will also be very cautious and aware of potential abuse and extended duration of patients' medication needs. a. Pain medications are for your comfort and to assist with sleep and rest so that the tissue can heal. They are not provided in order to return to normal activity and should not be used through the day. To do so or worsening pain at night can result from ongoing tissue damage and development of tolerance to the prescribed medicine. 6. Please allow 2-3 days to process refills. Prescriptions will not be mailed but must be picked up at the office. FOLLOW UP VISIT: Keep your scheduled follow-up appointment. Any questions, please call the office at . Pending Studies at Discharge: No Stand-Alone Forms: Nabsys, Smoking Cessation Medications and DC Order Prescriptions: New tramadol 50 mg tablet 50 mg PO Q6H PRN (Reason: pain, moderate) Qty: 30 0RF oxycodone 5 mg tablet 5 mg PO Q6H PRN (Reason: pain) Qty: 30 0RF Continued levothyroxine 137 mcg Tablet 137 mcg PO QAM atorvastatin 20 mg Tablet 20 mg PO QAM lisinopril 10 mg Tablet 10 mg PO QAM Invokana 300 mg Tablet 300 mg PO QAM Discharge Orders: Discharge Order (Routine); Ordered 09/28/22 Ordered By: Milad Srinivasan/Other Patient Handouts: Managing Type 2 Diabetes Admission Data Admit Date/Time: 09/25/22 15:09 Attending Provider: Milad Fernandez Admit Provider: Milad Fernandez Primary Care Provider: Ranjan Ontiveros Other Providers: Ramona Ruiz ; Derrick Tierney
[2022-09-28] MEDS: dexAMETHasone 6 MG in SYRINGE 0 ML IV SCH (09:54)
--- NOTE | 2022-09-28 13:47 | Hospitalist Progress Note ---
Date of Service September 28, 2022 Assessment & Plan (1) Neurogenic claudication due to lumbar spinal stenosis: Plan: POD#3 L3-S1 decompression and fusion by Dr. Fernandez Activity and wound care orders as per ortho Pain control with bowel regimen PT/OT Monitor H/H for acute blood loss anemia and transfuse blood products PRN EBL 300 cc (2) Diabetes mellitus, type 2: Plan: Hgb A1c 6.8 04/2022, A1c this admission 6.9 Hold Invokana and utilize NovoLog per protocol while hospitalized (3) Hypertension: Plan: BP controlled, continue lisinopril (4) Hypothyroidism: Plan: Continue levothyroxine DVT PROPHYLAXIS: Teds/SCDs as per spine Ortho Admission and Anticipated Discharge Date Admission Date: September 25, 2022 Subjective Patient seen and examined at bedside as a follow-up of medical management for status post lumbar surgery for neurogenic claudication due to lumbar spinal stenosis. Patient was lying in bed, on room air, NAD, reports pain under control, is tolerating diet well, denies any fever or chills or headache or dizziness. Physical Exam Physical Exam: GENERAL: Alert and oriented x3. NAD, on RA. Obese class II HEENT: No pallor, no icterus. Pupils equal, round and reactive to light. Oral mucosa moist. NECK: No JVD, no neck masses. HEART: S1 and S2 heard. Regular rate and rhythm. No murmur, no gallop. RESPIRATORY SYSTEM: Normal AP diameter. No accessory muscle use. No wheezing, no crackles. ABDOMEN: Soft, bowel sounds present, nontender, no distention. CENTRAL NERVOUS SYSTEM: No facial droop. Speech is clear. Obeys simple commands. Moves extremities. EXTREMITIES: No edema, no erythema seen. Low back dressing C/T/I, LENI drain with minimal serosanguineous collection noted. Results & Data Results & Data Vital Signs (Past 12 Hours) Vital Signs Temp Pulse Resp BP Pulse Ox O2 Del Method 09/28/22 07:29 36.8 C 64 16 121/79 96 Room Air
== END 2022-09-28 14:44 | disposition home or self-care (01) | DRG 460 ==
LOC: ASU 09:08 → 3N 15:09